=== PATIENT | female | born 2000 | race Hispanic/Latino ===

== ENCOUNTER 2025-01-18 19:49 | Emergency (ER) | payer SELFPAY ==
[2025-01-18 19:56] VITALS: BP 120/76
--- NOTE | 2025-01-18 23:09 | ED.GENMED ---
History of Present Illness
General
Chief Complaint: Musculo-Skeletal Complaint
Source: patient
Exam Limitations: none
Time Seen by Provider: 01/18/25 23:06
Nursing documentation reviewed up to this point in time: agreed with
History of Present Illness
History of Present Illness:
This is a 24-year-old female who presents emergency department today with concerns of right knee pain and swelling following a slip and fall yesterday. Patient reports that she was walking outside when she walked on a wet slippery patch of the
ground and she slipped, twisting her knee and falling to her side. She was able to get up on her own okay but noticed pain with weightbearing. Today, she woke up and noticed that her knee was swollen. She denies any other injuries. She denies
hitting her head when she fell or losing consciousness. She denies any neck pain. She denies any pain or injuries to her upper extremities. She denies any pain in her ankle. She states that she has full sensation and denies any numbness or
tingling, any pallor or color changes in her right lower extremity.
Review of Systems
Review of Systems
All Other Systems: ROS reviewed and negative except as documented in HPI and ROS
Phy Exam
Physical Exam
Physical Exam:
General: Patient is well appearing and in no acute distress; non-toxic
Skin: Warm and dry, no rashes or lesions
Head: Normocephalic, atraumatic
Eyes: Sclera non-icteric. EOMs intact.
Cardiac: Regular rate
Peripheral Vascular: No lower extremity swelling or edema. 2+ DP and PT pulses on the right.
Pulm: Normal respiratory effort
Musculoskeletal: Moderate amount of suprapatellar swelling noted to the right knee, pain with varus and valgus stress. Negative anterior drawer testing. Negative McMurrays.
Neuro: CN II-XII intact, no focal neurologic deficits. Sensation intact.
Psychiatric: Appropriate mood and affect.
Course
Orders/Labs/Results
Orders:
Orders
01/18/25 22:09
Knee, Right 4 or More Views [CR Knee- Right 4 Or More View*] Urgent
Comment:
Reason For Exam: knee pain after fall
01/18/25 23:48
Ibuprofen [Motrin] 600 mg PO NOW STA
Vital Signs
Initial and Last Documented VS:
Initial Vital Signs
Temp Pulse Resp BP Pulse Ox
99 F 87 16 120/76 99
01/18/25 19:56 01/18/25 19:56 01/18/25 19:56 01/18/25 19:56 01/18/25 19:56
Last Documented Vital Signs
Temp Pulse Resp BP Pulse Ox
99 F 87 16 120/76 99
01/18/25 19:56 01/18/25 19:56 01/18/25 19:56 01/18/25 19:56 01/18/25 19:56
MDM/Problems Addressed
Differential Diagnosis Includes:
Patellar fracture, tibial plateau fracture, meniscal injury, ACL injury, PCL injury, collateral ligament injury
MDM/Problems Addressed:
This is a 24-year-old female who presents emergency department today with concerns of right knee pain and swelling following a slip and fall yesterday. Patient reports that she was walking outside when she walked on a wet slippery patch of the
ground and she slipped, twisting her knee and falling to her side. She was able to get up on her own okay but noticed pain with weightbearing. On physical exam she is well-appearing no acute distress she does have visible swelling on the right
knee noted and her x-ray demonstrates a large right knee effusion with severe soft tissue swelling edema over the medial joint line concerning for acute medial collateral ligament injury as well as a possible avulsion fracture fragment. Reviewed
this information and sent x-ray image to orthopedist on-call. Will place patient in knee immobilizer and crutches. Return precautions discussed. Patient stable for discharge
Chronic conditions affecting care:
N/A
*Pulse Oximetry
Patient hypoxic: no
*Critical Care Note
Total Time (30-74mins, 75-104mins- exclusive of procedures): Not Applicable
Data Reviewed
Review of Other/Old Records Reveals: Records (Please review previous ER physician documentation, no prior ear/navigation to review no discharge summaries in [facility].)
ED Attending Note
-
Portions of this chart may have been created with voice recognition software.� Occasional wrong word or��sound alike� substitutions may have occurred due to the inherent limitations of voice recognition software.
Discharge Plan
Departure
Patient Disposition: Home (Routine Discharge)
Date of Disposition: 01/18/25
Time of Disposition: 23:50
Patient with high blood pressure during this ER visit?: No
Condition: Good
Discharge Problem:
Injury of medial collateral ligament of right knee, Effusion of knee joint right
Instructions: Knee Immobilizer (DC), Ligament Injuries in the Knee (DC)
Referrals:
NONE,* [Family Provider] -
Rosalio Wang MD [Active] - Call in 1-3 days for appt
Stand Alone Forms: Return to Work
Activity Restrictions/Additional Instructions:
As discussed, please wear knee immobilizer when ambulating. You can use crutches as well when ambulating. You can take ibuprofen over the counter as needed for pain.
Please call the attached number to schedule follow up with orthopedics, I spoke to Dr. Wang and they can likely see you in the office this week.
PLEASE RETURN TO THE ER SHOULD YOU DEVELOP AN ACUTE WORSENING OF YOUR SYMPTOMS,LOSS OF SENSATION, PALLOR, OR ANY OTHER SIGNS OR SYMPTOMS WORRISOME TO YOU.

[place] ya se mencion�, por favor use un inmovilizador de rodilla al caminar. [employer] puede usar muletas. Puede madan ibuprofeno sin receta seg�n sea necesario para el dolor.
Por favor, llame al n�yesy adjunto para programar casper tameka de seguimiento con el ortopedista. Habl� con el Dr. Wang y probablemente puedan atenderlo en la consulta esta semana.
Por favor, regrese a urgencias si presenta un empeoramiento lynnette de gay s�ntomas, p�rdida de sensibilidad, palidez o cualquier otro signo o s�ntoma que le preocupe.
Interventions
Interventions:
*Risk Screen - Suicide Last Done: 01/18/25 19:56
*General Assessment Last Done: 01/18/25 19:56
*Neglect/Abuse Screening Last Done: 01/18/25 19:56
*ED COVID-19 Vaccine History Last Done: 01/18/25 19:56
*Nursing Disposition Last Done: 01/19/25 00:45
ED-Musculoskeletal Assessment Last Done: 01/18/25 20:14
Discharge Date and Time
Discharge Date/Time: 01/19/25 00:46
Print Language: YORUBA
== END 2025-01-19 00:46 | disposition home or self-care (01) ==
LOC: EMR 19:49
PROVIDERS: EMERGENCY PHYSICIAN Student in an Organized Health Care Education/Training Program
DX: M25.461 Effusion, right knee (principal); M25.561 Pain in right knee; S89.81XA Other specified injuries of right lower leg, initial encounter; W01.0XXA Fall on same level from slipping, tripping and stumbling without subsequent striking against object, initial encounter; Y93.01 Activity, walking, marching and hiking
CPT/HCPCS: 99283; 29505; 73564